=== PATIENT | female | born 1950 | race Caucasian/White ===

== ENCOUNTER → 2016-09-29 | Outpatient (CLI) | payer OTHER ==
--- NOTE | 2016-09-29 18:54 | REP ---
Left foot series: For views. History: Left foot pain. Findings: Four views of the left foot show prominent plantar calcaneal spur. A small Achilles calcaneal spur is seen. Bones, joints, and soft tissues are otherwise unremarkable. No fracture or other acute bony abnormality seen. Impression: Heel spurs. Otherwise negative. Signed by Gunnar Gruber MD 09/29/2016 07:59 P
== END ==
LOC: M LRY 18:02
PROVIDERS: ATTEND Physician Assistant
DX: M79.672 Pain in left foot (principal)

== ENCOUNTER → 2016-10-05 | Outpatient (REF) | payer OTHER ==
[2016-10-05 17:29] LABS: URIC ACID 4.3 MG/DL (2.6-6.0)
== END ==
LOC: M LAB REF 16:29
PROVIDERS: ATTEND Nurse Practitioner Family
DX: M25.572 Pain in left ankle and joints of left foot (principal)

== ENCOUNTER → 2017-02-08 | Outpatient (REF) | payer OTHER ==
[2017-02-08 14:12] LABS: BACTERIA, URINE SMALL AMOUNT; HYALINE CAST, URINE NONE SEEN /lpf (0-1); MICROSCOPIC EXAM PERFORMED; SQUAMOUS EPITHELIAL CELL URINE SMALL AMOUNT /hpf (SMALL AMT)
== END ==
LOC: M LAB REF 12:31
PROVIDERS: ATTEND Internal Medicine
DX: E31.9 Polyglandular dysfunction, unspecified (principal)

== ENCOUNTER → 2017-03-02 | Outpatient (CLI) | payer OTHER ==
[2017-03-02 21:11] LABS: MICROSCOPIC INDICATED? MAN YES (NO)
[2017-03-02 21:27] LABS: BACTERIA, URINE SMALL AMOUNT; SQUAMOUS EPITHELIAL CELL URINE SMALL AMOUNT /hpf (SMALL AMT)
[2017-03-02 21:29] LABS: MICROSCOPIC EXAM PERFORMED
[2017-03-03 10:14] LABS: ANION GAP 7 MEQ/L (8-16); BLOOD UREA NITROGEN 19 MG/DL (7-18); CALCIUM LEVEL 10.3 MG/DL (8.8-10.2); CARBON DIOXIDE LEVEL 29 MEQ/L (21-32); CHLORIDE LEVEL 102 MEQ/L (98-107); CREATININE FOR GFR 0.89 MG/DL (0.55-1.02); GLOMERULAR FILTRATION RATE > 60.0 (>45); GLUCOSE, FASTING 108 MG/DL (80-110); POTASSIUM SERUM 4.6 MEQ/L (3.5-5.1); SODIUM LEVEL 138 MEQ/L (136-145)
== END ==
LOC: M SMT 14:50
PROVIDERS: ATTEND Nurse Practitioner Women's Health
DX: R31.29 Other microscopic hematuria (principal)

== ENCOUNTER → 2017-03-08 | Outpatient (CLI) | payer OTHER ==
[~2017-03-08] MED LIST: ISOVUE-370 76% 100ML VIAL (Q9967) As Ordered ONE
--- NOTE | 2017-03-08 20:08 | REP ---
The CT urogram without and with IV contrast: History: Microscopic hematuria. No comparison CT studies. CT contrast dose: 100 ml of Isovue [address] findings: Preliminary digital direct entry midwife radiograph demonstrates an unremarkable bowel gas pattern. The lung bases are clear. There are opaque calcified gallstones and gallbladder with approximately six stones seen in the largest of which measures 1.5 cm in diameter. No gallbladder wall thickening or pericholecystic fluid is seen. No focal liver lesion. Pancreas is unremarkable. The spleen is normal and homogeneous. No adrenal lesion is seen. There is no evidence of intrarenal calculus on either side. There is a cyst in the upper pole of the left kidney posteriorly measuring 1.9 cm in greatest diameter. Just superior to this there is a smaller cyst, 1.1 cm in greatest diameter. No renal mass lesion is seen. Delayed images show no evidence of intrarenal collecting system filling defect. The urinary bladder is unremarkable. Ureters describe a normal course to the bladder. Normal caliber aorta is seen. No retroperitoneal mass or adenopathy is observed. No uterine or adnexal abnormality is seen. The uterus is slightly retroverted. Small and large intestinal bowel loops are unremarkable. A short segment normal appendix is seen. Impression: 1. Cholelithiasis. 2. Two small cysts in the upper pole left kidney. 3. Otherwise unremarkable CT urography. Signed by Gunnar Gruber MD 03/09/2017 07:53 A
== END ==
LOC: M RAD 16:31
PROVIDERS: ATTEND Nurse Practitioner Women's Health
DX: R31.29 Other microscopic hematuria (principal)

== ENCOUNTER → 2018-05-24 | Outpatient (REF) | payer MEDICARE, OTHER | LOC: M LAB REF 17:48 | DX: D05.01 Lobular carcinoma in situ of right breast (principal) | CPT/HCPCS: 88305 ==

== ENCOUNTER → 2020-01-17 | Outpatient (CLI) | payer MEDICARE, OTHER ==
[2020-01-17 14:42] LABS: BASO % 0.6 % (0.0-1.0); EOS # 0.1 10^3/uL (0.0-0.5); EOS % 2.4 % (0.0-3.0); HEMATOCRIT 40.5 % (36.0-47.0); HEMOGLOBIN 13.5 g/dl (12.0-15.5); LYMPH # 1.8 10^3/uL (1.5-5.0); LYMPH % 34.1 % (24.0-44.0); MEAN CORPUSCULAR HEMOGLOBIN 31.8 pg (27.0-33.0); MEAN CORPUSCULAR HGB CONC 33.3 g/dl (32.0-36.5); MEAN CORPUSCULAR VOLUME 95.3 fl (80.0-96.0); MONO # 0.6 10^3/uL (0.0-0.8); MONO % 11.4 % (0.0-5.0); NEUTROPHILS # 2.8 10^3/uL (1.5-8.5); NEUTROPHILS % 51.3 % (36.0-66.0); PLATELET COUNT, AUTOMATED 227 10^3/uL (150-450); RED BLOOD COUNT 4.25 10^6/uL (4.00-5.40); WHITE BLOOD COUNT 5.4 10^3/uL (4.0-10.0)
[2020-01-17 14:44] LABS: ALBUMIN 4.1 GM/DL (3.2-5.2); PERCENT SATURATION 33.3 % (13.2-45.0); THYROID STIMULATING HORMONE 1.03 uIU/ML (0.358-3.740)
[2020-01-17 14:52] LABS: HEMOGLOBIN A1c 6.5 %
== END ==
LOC: M WUC 09:36
PROVIDERS: ATTEND Orthopaedic Surgery
DX: Z01.812 Encounter for preprocedural laboratory examination (principal); D64.9 Anemia, unspecified; M25.561 Pain in right knee; M17.11 Unilateral primary osteoarthritis, right knee

== ENCOUNTER → 2021-05-25 | Outpatient (CLI) | payer MEDICARE, OTHER ==
--- NOTE | 2021-05-25 16:04 | DEXAMM ---
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 COMPARISON: February 17, 2016. TECHNIQUE: Bone density was measured using dual-energy x-ray absorptionmetry (DEXA). FINDINGS: AP SPINE L1-L4 BMD 0.925 g/cm2 Young Adult T-Score -2.1 Age Matched Z-Score -0.4. LT FEMUR, TOTAL BMD 0.981 g/cm2 Young Adult T-Score -0.2 Age Matched Z-Score 1.3. LT NECK BMD 0.858 g/cm2 Young Adult T-Score -1.3 Age Matched Z-Score 0.4. RT FEMUR, TOTAL BMD 0.930 g/cm2 Young Adult T-Score -0.6 Age Matched Z-Score 0.9. RT NECK BMD 0.858 g/cm2 Young Adult T-Score -1.3 Age Matched Z-Score 0.4. IMPRESSION: There is low bone density of the spine. There is low bone density of the left hip. There is low bone density of the right hip. The density of the spine has decreased 2.9% since the initial exam on April 21, 2001. The density of the spine increased 3.1% since the most recent exam on February 17, 2016. The density of the left hip has increased 3.0% since the initial exam on April 21, 2001. The density of the left hip has increased 0.4% since the most recent exam on February 17, 2016. The density of the right hip has decreased 0.7% since the initial exam on April 21, 2001. The density of the right hip has decreased 2.2% since the most recent exam on February 17, 2016. FOLLOW-UP: Recommendation for the next bone density exam: 2-5 years. <Electronically signed by Glen Gruber > 05/25/21 [id number]
== END ==
LOC: M WHC 15:09
PROVIDERS: ATTEND Internal Medicine Hematology & Oncology
DX: Z13.820 Encounter for screening for osteoporosis (principal); D05.11 Intraductal carcinoma in situ of right breast; M85.88 Other specified disorders of bone density and structure, other site

== ENCOUNTER → 2022-04-08 | Outpatient (CLI) | payer MEDICARE, OTHER | LOC: M WUC 08:40 | PROVIDERS: ATTEND Internal Medicine | DX: M54.9 Dorsalgia, unspecified (principal) ==

== ENCOUNTER → 2025-05-02 | Outpatient (REF) | payer MEDICARE, OTHER ==
[2025-05-02 13:55] LABS: APPEARANCE, URINE HAZY (CLEAR); BACTERIA, URINE AUTO 2+ (NEGATIVE); BILIRUBIN, URINE AUTO NEGATIVE (NEGATIVE); BLOOD, URINE BLOOD 1+ (NEGATIVE); GLUCOSE, URINE (UA) AUTO NEGATIVE (NEGATIVE); KETONE, URINE AUTO NEGATIVE (NEGATIVE); LEUKOCYTE ESTERASE, URINE AUTO 1+ (NEGATIVE); NITRITE, URINE AUTO NEGATIVE (NEGATIVE); PROTEIN, URINE AUTO NEGATIVE (NEGATIVE); RBC, URINE AUTO 14 /HPF (0-3); SPECIFIC GRAVITY URINE AUTO 1.015 (1.002-1.035); SQUAMOUS EPITHELIAL CELL UR AU 4 /HPF (0-6); UROBILINOGEN, URINE AUTO 0.2 mg/dL (0.0-2.0); WBC, URINE AUTO 57 /HPF (0-3)
== END ==
LOC: M LAB REF 12:12
PROVIDERS: ATTEND Internal Medicine
DX: R31.9 Hematuria, unspecified (principal)

== ENCOUNTER → 2025-07-31 | Outpatient (REF) | payer MEDICARE, OTHER ==
[2025-07-31 12:30] LABS: APPEARANCE, URINE CLEAR (CLEAR); BACTERIA, URINE AUTO NEGATIVE (NEGATIVE); BILIRUBIN, URINE AUTO NEGATIVE (NEGATIVE); BLOOD, URINE BLOOD 1+ (NEGATIVE); GLUCOSE, URINE (UA) AUTO NEGATIVE (NEGATIVE); KETONE, URINE AUTO NEGATIVE (NEGATIVE); LEUKOCYTE ESTERASE, URINE AUTO NEGATIVE (NEGATIVE); NITRITE, URINE AUTO NEGATIVE (NEGATIVE); PROTEIN, URINE AUTO NEGATIVE (NEGATIVE); RBC, URINE AUTO 0 /HPF (0-3); SPECIFIC GRAVITY URINE AUTO 1.004 (1.002-1.035); SQUAMOUS EPITHELIAL CELL UR AU 0 /HPF (0-6); UROBILINOGEN, URINE AUTO 0.2 mg/dL (0.0-2.0); WBC, URINE AUTO 0 /HPF (0-3)
== END ==
LOC: M LAB REF 11:53
PROVIDERS: ATTEND Internal Medicine
DX: R31.9 Hematuria, unspecified (principal)